=== PATIENT | female | born 1995 | race Two or more races ===

== ENCOUNTER 2017-01-24 10:28 | Emergency (ER) | payer SELFPAY ==
[~2017-01-24] VITALS: Ht 162.6 cm; Wt 108.9 kg
[2017-01-24 10:47] VITALS: BP 135/88
== END 2017-01-24 12:40 | disposition home or self-care (01) ==
LOC: ER 10:28
DX: S39.012A Strain of muscle, fascia and tendon of lower back, initial encounter (principal); X58.XXXA Exposure to other specified factors, initial encounter; Y93.89 Activity, other specified; Y99.8 Other external cause status; Y92.89 Other specified places as the place of occurrence of the external cause

== ENCOUNTER 2019-12-31 18:21 | Emergency (ER) | payer SELFPAY ==
[~2019-12-31] VITALS: Ht 167.6 cm; Wt 113.4 kg
[2019-12-31 18:57] VITALS: BP 158/94
[2019-12-31] MEDS ORDERED: KETOROLAC TROMETH 60MG/2ML VIAL IM ONE (19:30)
[2019-12-31] MEDS ORDERED: methylPREDNISolone SOD SUCC 125 MG/2 ML VL IM ONE (19:30)
[2019-12-31 19:52] LABS: Urine WBC None Seen /hpf (0 - 5)
[2019-12-31 20:04] LABS: Urine Bacteria NONE SEEN /hpf (None Seen); Urine Blood 3+ /uL (Negative)
[2019-12-31 20:38] LABS: Urine Specific Gravity 1.029 (1.001-1.035)
[2019-12-31] MEDS ORDERED: cefTRIAXone SOD 1,000 MG VL IM ONE (20:45)
== END 2019-12-31 21:08 | disposition home or self-care (01) ==
LOC: ER 18:21 → EDBD 18:21 → ER 21:08
DX: M51.16 Intervertebral disc disorders with radiculopathy, lumbar region (principal); N39.0 Urinary tract infection, site not specified; E11.9 Type 2 diabetes mellitus without complications
CPT/HCPCS: 72131; 81001; 81025; 96372; 99284; J1885; J2930

== ENCOUNTER 2020-11-29 00:42 | Inpatient (IN) | payer MEDICAID ==
[~2020-11-29] VITALS: Ht 162.6 cm; Wt 132.3 kg
[2020-11-29] VITALS (7 sets, daily range): BP systolic 101–144; BP diastolic 59–78
[2020-11-29] MEDS ORDERED: ACETAMINOPHEN 500 MG TAB PO ONE (01:45)
[2020-11-29 02:25] LABS: Alanine Aminotransferase 36 U/L (13-56); Albumin 3.4 g/dL (3.4-5.0); Anion Gap 6 (5-15); Aspartate Aminotransferase 27 U/L (15-37); BUN/Creatinine Ratio 6.8; Blood Urea Nitrogen 6 mg/dL (7-18); Calcium 8.3 mg/dL (8.5-10.1); Carbon Dioxide 28 mmol/L (21-32); Chloride 99 mmol/L (98-107); GFR African American 100 mL/min; GFR Non-African American 83 mL/min; Glucose 260 mg/dL (74-106); Potassium 3.9 mmol/L (3.5-5.1); Sodium 133 mmol/L (136-145)
[2020-11-29 02:26] LABS: INR 1.03 (0.9-1.15); Partial Thromboplastin Time 29.3 sec (23.6-33.0)
[2020-11-29 02:29] LABS: Alkaline Phosphatase 119 U/L (45-117); Bilirubin, Total 0.4 mg/dL (0.2-1.0); Total Protein 8.8 g/dL (6.4-8.2)
[2020-11-29] MEDS ORDERED: ACETAMINOPHEN 325 MG TAB PO ONE (02:30)
[2020-11-29 04:39] LABS: Basophils # (auto) 0 10 ^3/uL (0-0.2); Eosinophils # (auto) 0 10 ^3/uL (0-0.8); Eosinophils % (auto) 0.1 % (0.0-7.0); Hemoglobin 14.6 g/dL (12.2-16.2); Lymphocytes # (auto) 1.3 10 ^3/uL (0.4-5.4); Monocytes # (auto) 0.3 10 ^3/uL (0-1.3); Nucleated Red Blood Cells % 0.1 %
[2020-11-29 04:41] LABS: Basophils % (auto) 0.5 % (0.0-2.0); Hematocrit 43.3 % (36.0-46.0); Mean Corpuscular Hemoglobin 25.6 pg (28.0-32.0); Mean Corpuscular Hgb Conc. 33.7 g/dL (32.0-36.0); Mean Corpuscular Volume 75.8 fL (80.0-100.0); Monocytes % (auto) 6.2 % (0.0-12.0); Neutrophils # (auto) 3.6 10 ^3/uL (1.6-8.6); Neutrophils % (auto) 68.2 % (37.0-80.0); Red Blood Cells 5.72 10^6/uL (4.0-5.20); Red Cell Distribution Width 15.1 % (11.8-14.3); White Blood Cell 5.3 10^3/uL (4.4-10.8)
[2020-11-29] MEDS ORDERED: IOHEXOL 350 MG/ML 100ML IJ ONE (05:55)
[2020-11-29] MEDS ORDERED: AZITHROMYCIN 500MG/ 250ML 250 ML IV ONE (06:00)
[2020-11-29] MEDS ORDERED: cefTRIAXone 1GM/50ML D5W 50 ML IV ONE (06:00)
[2020-11-29 08:38] LABS: Urine Bacteria FEW /hpf (None Seen); Urine Blood Negative /uL (Negative); Urine Specific Gravity 1.018 (1.001-1.035); Urine WBC 2 /hpf (0 - 5)
[2020-11-29] MEDS ORDERED: ACETAMINOPHEN 500 MG TAB PO PRN (09:00)
[2020-11-29] MEDS ORDERED: cefTRIAXone 1GM/50ML D5W 50 ML IV SCH (09:00)
[2020-11-29] MEDS ORDERED: MORPHINE SULFATE INJECTION 2 MG/ML SYRG IV PRN (09:00)
[2020-11-29] MEDS ORDERED: NITROGLYCERIN 0.4 MG SL TAB SL PRN (09:00)
[2020-11-29] MEDS: ZINC SULFATE 220mg CAP or TAB PO SCH (11:47)
[2020-11-29] MEDS: DexAMETHasone SOD PHOS 10MG/1ML VIAL INJ IV SCH (11:47)
[2020-11-29] MEDS: CHOLECALCIFEROL (VITD3) 2,000 UNIT CAP/TAB PO SCH (11:48)
[2020-11-29] MEDS: ASCORBIC ACID 1,000 MG TAB PO SCH (11:48)
[2020-11-29] MEDS: ENOXAPARIN SOD 40 MG/0.4 ML SYRINGE SC SCH ×2 (11:49→21:34)
[2020-11-29] MEDS: IVERMECTIN 3 MG TAB PO SCH (14:23)
[2020-11-30] MEDS: ALBUTEROL SULF HFA 90MCG INH 200DOSE IN PRN ×3 (00:09→20:06)
[2020-11-30 05:00] VITALS: BP 115/60
[2020-11-30] MEDS ORDERED: guaiFENesin-DM 100/10mg/5ml SYR PO PRN (06:30)
[2020-11-30 07:12] LABS: Basophils # (auto) 0 10 ^3/uL (0-0.2); Basophils % (auto) 0.6 % (0.0-2.0); Eosinophils # (auto) 0 10 ^3/uL (0-0.8); Eosinophils % (auto) 0.1 % (0.0-7.0); Hemoglobin 13.7 g/dL (12.2-16.2); Mean Corpuscular Hemoglobin 25.5 pg (28.0-32.0); Nucleated Red Blood Cells % 0.1 %; Red Blood Cells 5.36 10^6/uL (4.0-5.20); White Blood Cell 4.7 10^3/uL (4.4-10.8)
[2020-11-30 07:16] LABS: Hematocrit 40.9 % (36.0-46.0); Lymphocytes # (auto) 1.5 10 ^3/uL (0.4-5.4); Lymphocytes % (auto) 30.8 % (10.0-50.0); Mean Corpuscular Hgb Conc. 33.4 g/dL (32.0-36.0); Mean Corpuscular Volume 76.3 fL (80.0-100.0); Monocytes # (auto) 0.2 10 ^3/uL (0-1.3); Monocytes % (auto) 5.2 % (0.0-12.0); Neutrophils % (auto) 63.3 % (37.0-80.0)
[2020-11-30 08:30] VITALS: BP 123/62
[2020-11-30 09:00] VITALS: BP 123/62
[2020-11-30] MEDS: CHOLECALCIFEROL (VITD3) 2,000 UNIT CAP/TAB PO SCH (09:48)
[2020-11-30] MEDS: ASCORBIC ACID 1,000 MG TAB PO SCH (09:48)
[2020-11-30] MEDS: ZINC SULFATE 220mg CAP or TAB PO SCH (09:49)
[2020-11-30] MEDS: IVERMECTIN 3 MG TAB PO SCH (09:49)
[2020-11-30] MEDS: ENOXAPARIN SOD 40 MG/0.4 ML SYRINGE SC SCH ×2 (09:49→21:45)
[2020-11-30] MEDS: cefTRIAXone 1GM/50ML D5W 50 ML IV SCH (09:50)
[2020-11-30] MEDS: DexAMETHasone SOD PHOS 10MG/1ML VIAL INJ IV SCH (09:50)
[2020-11-30] MEDS ORDERED: REMDESIVIR PER PHARMACY 0 ML IV SCH (10:15)
[2020-11-30] MEDS: AZITHROMYCIN 500MG/ 250ML 250 ML IV SCH (10:56)
[2020-11-30 13:00] VITALS: BP 121/58
[2020-11-30] MEDS ORDERED: ACETAMINOPHEN 325 MG TAB PO PRN (13:15)
[2020-11-30 13:20] LABS: Anion Gap 9 (5-15); Blood Urea Nitrogen 8 mg/dL (7-18); Carbon Dioxide 22 mmol/L (21-32); Chloride 102 mmol/L (98-107); Glucose 227 mg/dL (74-106); Potassium 3.5 mmol/L (3.5-5.1); Sodium 133 mmol/L (136-145)
[2020-11-30 13:21] LABS: Alanine Aminotransferase 35 U/L (13-56); Alkaline Phosphatase 98 U/L (45-117); Aspartate Aminotransferase 31 U/L (15-37); BUN/Creatinine Ratio 11.3; Bilirubin, Total 0.4 mg/dL (0.2-1.0); Calcium 8.2 mg/dL (8.5-10.1); GFR African American 128 mL/min; GFR Non-African American 106 mL/min; Total Protein 8.1 g/dL (6.4-8.2)
[2020-11-30] MEDS ORDERED: REMDESIVIR 200 MG in NS 210ml LOADING DOSE ADULT IV ONE (15:00)
[2020-11-30 17:00] VITALS: BP 123/61
[2020-11-30] MEDS ORDERED: ERGOCALCIFEROL 50,000 UNIT(1.25MG) CAP PO SCH (18:15)
[2020-11-30] MEDS ORDERED: DEXTROSE (50%) 50ML SYRG IV PRN (18:15)
[2020-11-30 21:00] VITALS: BP_SYST 68
[2020-11-30] MEDS: ACCU-CHEK COMFORT CURVE STRIP VI SCH (21:45)
[2020-11-30] MEDS: InsuLIN REG 1unit/0.01ml Soln (100units/ml) SC SCH (21:46)
[2020-12-01] VITALS (9 sets, daily range): BP systolic 107–123; BP diastolic 53–81
[2020-12-01] MEDS: ACCU-CHEK COMFORT CURVE STRIP VI SCH ×4 (06:27→22:10)
[2020-12-01] MEDS: InsuLIN REG 1unit/0.01ml Soln (100units/ml) SC SCH ×4 (06:32→22:18)
[2020-12-01 07:12] LABS: Calcium 8.8 mg/dL (8.5-10.1); Potassium 3.4 mmol/L (3.5-5.1)
[2020-12-01 07:18] LABS: BUN/Creatinine Ratio 16.9; Bilirubin, Total 0.3 mg/dL (0.2-1.0)
[2020-12-01] MEDS: cefTRIAXone 1GM/50ML D5W 50 ML IV SCH (08:27)
[2020-12-01] MEDS: DexAMETHasone SOD PHOS 10MG/1ML VIAL INJ IV SCH (08:27)
[2020-12-01] MEDS: ASCORBIC ACID 1,000 MG TAB PO SCH (08:28)
[2020-12-01] MEDS: IVERMECTIN 3 MG TAB PO SCH (08:28)
[2020-12-01] MEDS: CHOLECALCIFEROL (VITD3) 2,000 UNIT CAP/TAB PO SCH (08:28)
[2020-12-01] MEDS: ZINC SULFATE 220mg CAP or TAB PO SCH (08:28)
[2020-12-01] MEDS: ENOXAPARIN SOD 40 MG/0.4 ML SYRINGE SC SCH ×2 (08:29→22:09)
[2020-12-01] MEDS: AZITHROMYCIN 500MG/ 250ML 250 ML IV SCH (10:08)
[2020-12-01] MEDS ORDERED: POTASSIUM CHL 20 Meq TABLET PO ONE (10:30)
[2020-12-01] MEDS: REMDESIVIR 100mg 100 MG in SODIUM CHL 0.9% 230 ML IV SCH (16:08)
[2020-12-02 05:00] VITALS: BP 105/65
[2020-12-02] MEDS: ACCU-CHEK COMFORT CURVE STRIP VI SCH ×4 (06:23→21:36)
[2020-12-02] MEDS: InsuLIN REG 1unit/0.01ml Soln (100units/ml) SC SCH ×4 (06:24→21:41)
[2020-12-02 06:49] LABS: Potassium 3.6 mmol/L (3.5-5.1)
[2020-12-02] MEDS: ALBUTEROL SULF HFA 90MCG INH 200DOSE IN PRN ×2 (07:00→22:22)
[2020-12-02] MEDS ORDERED: INSULIN LANTUS (GLARGINE) 1 /0.01ml (100units/ml) SC SCH (07:00)
[2020-12-02 07:03] LABS: Albumin 2.9 g/dL (3.4-5.0); BUN/Creatinine Ratio 17.7; Bilirubin, Total 0.2 mg/dL (0.2-1.0); Calcium 8.6 mg/dL (8.5-10.1); Total Protein 8.1 g/dL (6.4-8.2)
[2020-12-02 09:00] VITALS: BP 94/59
[2020-12-02] MEDS: cefTRIAXone 1GM/50ML D5W 50 ML IV SCH (09:30)
[2020-12-02] MEDS: ENOXAPARIN SOD 40 MG/0.4 ML SYRINGE SC SCH ×2 (09:30→21:37)
[2020-12-02] MEDS: IVERMECTIN 3 MG TAB PO SCH (09:30)
[2020-12-02] MEDS: DexAMETHasone SOD PHOS 10MG/1ML VIAL INJ IV SCH (09:31)
[2020-12-02] MEDS: ASCORBIC ACID 1,000 MG TAB PO SCH (09:31)
[2020-12-02] MEDS: ZINC SULFATE 220mg CAP or TAB PO SCH (09:31)
[2020-12-02] MEDS: CHOLECALCIFEROL (VITD3) 2,000 UNIT CAP/TAB PO SCH (09:31)
[2020-12-02] MEDS: AZITHROMYCIN 500MG/ 250ML 250 ML IV SCH (10:49)
[2020-12-02 13:00] VITALS: BP 100/55
[2020-12-02 13:30] VITALS: BP 100/55
[2020-12-02] MEDS: REMDESIVIR 100mg 100 MG in SODIUM CHL 0.9% 230 ML IV SCH (15:00)
[2020-12-02 17:00] VITALS: BP 117/65
[2020-12-02] MEDS ORDERED: DEXTROSE (50%) 50ML SYRG IV PRN (17:30)
[2020-12-02 22:00] VITALS: BP 121/75
[2020-12-03 05:00] VITALS: BP 103/59
[2020-12-03] MEDS: ACCU-CHEK COMFORT CURVE STRIP VI SCH ×4 (06:16→22:12)
[2020-12-03] MEDS: InsuLIN REG 1unit/0.01ml Soln (100units/ml) SC SCH ×4 (06:19→22:14)
[2020-12-03] MEDS: INSULIN LANTUS (GLARGINE) 1 /0.01ml (100units/ml) SC SCH (06:19)
[2020-12-03] MEDS: ALBUTEROL SULF HFA 90MCG INH 200DOSE IN PRN ×2 (07:03→21:41)
[2020-12-03 07:07] LABS: Potassium 3.5 mmol/L (3.5-5.1)
[2020-12-03 07:16] LABS: Albumin 2.9 g/dL (3.4-5.0); BUN/Creatinine Ratio 13.8; Bilirubin, Total 0.3 mg/dL (0.2-1.0); Calcium 8.4 mg/dL (8.5-10.1); Total Protein 7.8 g/dL (6.4-8.2)
[2020-12-03 08:30] VITALS: BP 98/67
[2020-12-03] MEDS: ZINC SULFATE 220mg CAP or TAB PO SCH (09:09)
[2020-12-03] MEDS: DexAMETHasone SOD PHOS 10MG/1ML VIAL INJ IV SCH (09:09)
[2020-12-03] MEDS: cefTRIAXone 1GM/50ML D5W 50 ML IV SCH (09:09)
[2020-12-03] MEDS: IVERMECTIN 3 MG TAB PO SCH (09:09)
[2020-12-03] MEDS: ASCORBIC ACID 1,000 MG TAB PO SCH (09:10)
[2020-12-03] MEDS: CHOLECALCIFEROL (VITD3) 2,000 UNIT CAP/TAB PO SCH (09:10)
[2020-12-03] MEDS: ENOXAPARIN SOD 40 MG/0.4 ML SYRINGE SC SCH ×2 (09:29→22:12)
[2020-12-03] MEDS: AZITHROMYCIN 500MG/ 250ML 250 ML IV SCH (10:14)
[2020-12-03 12:30] VITALS: BP 121/69
[2020-12-03] MEDS ORDERED: METF-371 PO (14:35)
[2020-12-03] MEDS ORDERED: ERGO1CAP23 PO (14:35)
[2020-12-03] MEDS ORDERED: [UNRECOGNIZED DRUG - CODE] XX (14:35)
[2020-12-03] MEDS: REMDESIVIR 100mg 100 MG in SODIUM CHL 0.9% 230 ML IV SCH (14:48)
[2020-12-03 17:00] VITALS: BP 113/59
[2020-12-03] MEDS: metFORMIN HYDROCHLORIDE 850 MG TAB PO SCH (17:24)
[2020-12-03 22:09] VITALS: BP 127/64
[2020-12-04 05:00] VITALS: BP 114/57
[2020-12-04] MEDS: REMDESIVIR 100mg 100 MG in SODIUM CHL 0.9% 230 ML IV SCH (05:50)
[2020-12-04] MEDS: ACCU-CHEK COMFORT CURVE STRIP VI SCH ×2 (06:23→11:30)
[2020-12-04] MEDS: INSULIN LANTUS (GLARGINE) 1 /0.01ml (100units/ml) SC SCH (06:27)
[2020-12-04] MEDS: InsuLIN REG 1unit/0.01ml Soln (100units/ml) SC SCH ×2 (06:32→12:46)
[2020-12-04 06:43] LABS: Potassium 3.9 mmol/L (3.5-5.1)
[2020-12-04 06:59] LABS: Albumin 2.9 g/dL (3.4-5.0); BUN/Creatinine Ratio 15.6; Bilirubin, Total 0.4 mg/dL (0.2-1.0); Calcium 8.4 mg/dL (8.5-10.1)
[2020-12-04 08:00] VITALS: BP 108/62
[2020-12-04] MEDS: metFORMIN HYDROCHLORIDE 850 MG TAB PO SCH (08:08)
[2020-12-04] MEDS: ALBUTEROL SULF HFA 90MCG INH 200DOSE IN PRN (09:06)
[2020-12-04] MEDS: cefTRIAXone 1GM/50ML D5W 50 ML IV SCH (09:41)
[2020-12-04] MEDS: ZINC SULFATE 220mg CAP or TAB PO SCH (09:42)
[2020-12-04] MEDS: ASCORBIC ACID 1,000 MG TAB PO SCH (09:42)
[2020-12-04] MEDS: CHOLECALCIFEROL (VITD3) 2,000 UNIT CAP/TAB PO SCH (09:42)
[2020-12-04] MEDS: DexAMETHasone SOD PHOS 10MG/1ML VIAL INJ IV SCH (09:42)
[2020-12-04] MEDS: ENOXAPARIN SOD 40 MG/0.4 ML SYRINGE SC SCH (09:43)
[2020-12-04] MEDS ORDERED: GLIP10TA16 PO (12:41)
[2020-12-04 14:00] VITALS: BP_SYST 100; BP_SYST 120; BP_DIAS 60; BP_DIAS 69
== END 2020-12-04 14:15 | disposition home or self-care (01) | DRG 137 ==
LOC: EDBD 00:42 → EDUNIT# 00:42 → ER 00:45 → TELE 08:52 → TELE-EAST 10:24
PROVIDERS: ADMIT Nurse Practitioner Acute Care; ATTEND Internal Medicine Nephrology
PROC: XW13325 Transfusion of Convalescent Plasma (Nonautologous) into Peripheral Vein, Percutaneous Approach, New Technology Group 5 (ICD-10-PCS; principal; 2020-11-29)
PROC: XW033E5 Introduction of Remdesivir Anti-infective into Peripheral Vein, Percutaneous Approach, New Technology Group 5 (ICD-10-PCS; 2020-11-30)
DX: U07.1 COVID-19 (principal); J12.82 Pneumonia due to coronavirus disease 2019; D89.839 Cytokine release syndrome, grade unspecified; Z68.43 Body mass index [BMI] 50.0-59.9, adult; E11.9 Type 2 diabetes mellitus without complications; E55.9 Vitamin D deficiency, unspecified; E66.01 Morbid (severe) obesity due to excess calories
CPT/HCPCS: 36415; 36430; 71045; 71275; 80053; 80061; 81001; 82306; 82728; 82962; 83036; 83605; 83615; 84484; 85025; 85379; 85610; 85652; 85730; 86141; 86850; 86900; 86901; 87040; 87426; 93005; 94640; 96365; 96367; G0378; J0696; J1100; J1815

== ENCOUNTER 2022-12-20 02:56 | Emergency (ER) | payer MEDICAID ==
[~2022-12-20 02:56] MED LIST: ERGO1CAP23 PO; GLIP10TA21 PO; METF-371 PO; [UNRECOGNIZED DRUG - CODE] XX
[2022-12-20 04:21] VITALS: BP 156/67; PULSE 85; RESP 20; TEMP 98.4; O2SAT 96
[2022-12-20] MEDS ORDERED: AMOX875T4 PO (04:25)
[2022-12-20] MEDS ORDERED: IBUP-1456 PO (04:25)
[2022-12-20] MEDS ORDERED: KETOROLAC TROMETH 60MG/2ML VIAL IM ONE (04:30)
== END 2022-12-20 05:16 | disposition home or self-care (01) ==
LOC: ER 03:00
DX: J01.90 Acute sinusitis, unspecified (principal); E11.9 Type 2 diabetes mellitus without complications; Z79.899 Other long term (current) drug therapy; Z79.84 Long term (current) use of oral hypoglycemic drugs
CPT/HCPCS: 81025; 96372; 99283; J1885

== ENCOUNTER 2024-06-16 07:28 | Emergency (ER) | payer MEDICAID ==
[~2024-06-16] VITALS: Ht 160 cm; Wt 113.4 kg
[~2024-06-16 07:28] MED LIST changes: +AMOX875T4 PO; +IBUP-1456 PO
--- NOTE | 2024-06-16 09:08 | ED.PDOC ---
History of Present Illness(SKN HPI Comments 29-year-old female with a history of prediabetes presents for a possible abscess to the right buttock. Symptoms started five days ago patient was prompted to the emergency department as symptoms have been gradually worsening over time. Able to get minimal relief with [id number] Tylenol. Patient reports pain is aggravated with sitting on the affected side and aggravated to touch. Denies fevers chills drainage from the affected side Chief Complaint: Abscess Time Seen by MD: 08:39 Primary Care Provider: UNKNOWN History of Present Illness: Nurses Notes, Medications, Allergies Allergies: Coded Allergies: NO KNOWN ALLERGIES (Unverified , 01/24/17) Home Meds Active Scripts Ibuprofen (Ibuprofen) 800 Mg Tab, 1 TAB PO TID PRN, #30 TAB 0 Refills Prov:TROY COHEN 12/20/22 Amoxicillin & Pot Clavulanate (Amoxicillin/Potassium Cla) 875 Mg Tab, 1 TAB PO BID for 7 Days, #14 TAB 0 Refills Prov:TROY COHEN 12/20/22 Glipizide (Glipizide Er) 10 Mg Tab, 1 TAB PO DAILY for 30 Days, #30 TAB 1 Refill Prov:ZOILA HECTOR MD 12/04/20 Blood Glucose Monitor & Blood (NEUTEK 2TEK BLOOD GLUCOSE) Gluc/Pre Mis, PRE XX TID, #1 Prov:CAMILLE RODRIGES MD 12/03/20 Metformin Hydrochloride (Metformin Hcl) 850 Mg Tab, 1 TAB PO BID for 30 Days, #60 TAB 5 Refills Prov:CAMILLE RODRIGES MD 12/03/20 Ergocalciferol (VITAMIN D 24302 UNIT) 50,[address] [place], [address] UNIT PO Q7D for 9 Days, #9 CAP Prov:CAMILLE RODRIGES MD 12/03/20 Information Source: Patient Mode of Arrival: Ambulatory Past Medical History PAST MEDICAL HISTORY: DM Surgical History: Denies all surgeries ARCHITECT MANAGER History: No Pertinent ARCHITECT MANAGER History Family History Family History: Unknown Social History Smoker: Non-Smoker Alcohol: Denies ETOH Use Drugs: Denies Drug Use Lives In: Home All Other Systems: Reviewed and Negative (Per HPI) Physical Exam General Appearance: No Apparent Distress, Normal HEENT: Normal ENT Inspection, Pharynx Normal, TMs Normal Neck: Full Range of Motion, Non-Tender, Normal, Normal Inspection Respiratory: Chest Non-Tender, Lungs Clear, No Accessory Muscle Use, No Respiratory Distress, Normal Breath Sounds Cardiovascular: No Murmur, No Gallop, Regular Rate/Rhythm Breast Exam: Deferred Gastrointestinal: No Organomegaly, Non Tender, No Pulsatile Mass, Normal Bowel Sounds, Soft Genitalia: Deferred Pelvic: Deferred Rectal: Deferred Extremities: No calf tenderness, Normal capillary refill, Normal inspection, Normal range of motion, Non-tender, No pedal edema Musculoskeletal : Apperance: Normal Neurologic: Alert, No Motor Deficits, Normal Affect, Normal Mood, No Sensory Deficits Cerebellar Function: Normal Reflexes: Normal Skin: Dry, Normal Color, Warm Lymphatic: No Adenopathy Was a procedure done? Was a procedure done?: No Images 1 - 3 x 3 cm erythematous nonfluctuant abscess. Tender to palpation. Differential Diagnosis (INTG) Differential Diagnosis: Abrasion, Cellulitis, Contusion X-Ray, Labs, Meds, VS Vital Signs Date Time Temp Pulse Resp B/P (MAP) Pulse Ox O2 Delivery O2 Flow Rate FiO2 06/16/24 07:44 97.2 120 16 138/94 (109) 95 Current Medications Medications (Trade) Dose Ordered Sig/Cullen Route Start Time Stop Time Status Last Admin Ceftriaxone Sodium (Rocephin) 1,000 mg ONCE ONCE IM 06/16/24 09:15 06/16/24 09:16 DC 06/16/24 09:40 Acetaminophen/ Hydrocodone Bitart ([place] 7.5/325MG Tab) 1 tab ONCE ONCE PO 06/16/24 09:15 06/16/24 09:16 DC 06/16/24 09:39 X-Ray, Labs, Meds, VS Comment This patient presents with signs and symptoms consistent with a cutaneous abscess. The abscess is localized without any evidence of deep soft tissue infection based on physical examination. The patient required incision and drainage. Differential diagnosis considered but not limited to: abscess, folliculitis, cellulitis. I also considered deep space infection, necrotizing fasciitis, sepsis, however, this is less likely as the patient does not have rapid expanding erythema or pain out of proportion to suggest necrotizing fasciitis. There is no evidence of sepsis on both a review of their vitals and clinical exam. The abscess is still quite firm, and the wound will not benefit from drainage at this time. Will start antibiotics and warm compresses. It is advised to return if symptoms worsen or do not resolve after completion of antibiotics. On reevaluation, patient had symptomatic improvement. Patient is stable for discharge at this time. External notes reviewed. Test results and diagnostic imaging interpreted. All diagnostic findings, discharge care, education and instructions provided Follow-up with PCP in 2 to 3 days Patient verbalized understanding and agreed to treatment plan Vital signs stable, afebrile, no acute distress noted Patient ambulatory with strong steady gait Advised to return precautions for any new or worsening symptoms, return to ER immediately for re-evaluation Patient is aware that the purpose of this visit was for an acute medical emergency requiring emergent stabilization. Chronic conditions, including malignancies have not been ruled out. Patient is instructed to follow up with PCP as directed and discharge instructions for continued care and workup. If unable to arrange follow-up, patient is to return to the emergency department for reassessment. Patient (parent or legal guardian if applicable) was given verbal and written discharge instructions and acknowledges understanding. Time of 1ST Reevaluation: 10:25 Reevaluation 1ST: Improved Patient Education/Counseling: Diagnosis, Treatment Family Education/Counseling: Diagnosis, Treatment Departure 1 Departure Time of Disposition: 10:22 Impression: Primary Impression: Abscess Disposition: 01 HOME / SELF CARE / HOMELESS Condition: Stable e-Prescriptions Hydrocodone-Acetaminophen (Hydrocodone Bitartrate/AC 5-325 mg) 1 Tab Tab 1 TAB PO Q6HP PRN for 2 Days, #8 TAB 0 Refills Prov: LAWRENCE AMADOR NP 06/16/24 Sulfamethoxazole W/Trimethopri (Bactrim Ds Tablet) 1 Tab Tb 1 TAB PO BID for 7 Days, #14 TAB 0 Refills Prov: LAWRENCE AMADOR CARD ASSEMBLER 06/16/24 Cephalexin Monohydrate (Cephalexin) 500 Mg Cap 1 CAP PO QID for 7 Days, #28 CAP 0 Refills Prov: LAWRENCE AMADOR NP 06/16/24 Discharged With: Self Critical Care Note Critical Care Time?: No Stability Stability form required: No Heart Score Heart Score: Heart Score Response (Comments) Value History N/A 0 EKG N/A 0 Age N/A 0 Risk Factors N/A 0 Troponin N/A 0 Total 0 LAWRENCE AMADOR NP Jun 16, 2024 09:08
[2024-06-16] MEDS: HYDROcodone-ACET 7.5/325MG TAB PO ONE (09:39)
[2024-06-16] MEDS: cefTRIAXone SOD 1,000 MG VL IM ONE (09:40)
[2024-06-16] MEDS ORDERED: BACDST PO (10:24)
[2024-06-16] MEDS ORDERED: CEPH500C PO (10:24)
[2024-06-16] MEDS ORDERED: HYDR-4902 PO (10:24)
[2024-06-16 10:42] VITALS: BP 131/76; PULSE 80; RESP 18; TEMP 98.3; O2SAT 97
== END 2024-06-16 10:56 | disposition home or self-care (01) ==
LOC: ER 07:28
DX: L02.31 Cutaneous abscess of buttock (principal); E11.9 Type 2 diabetes mellitus without complications; Z79.84 Long term (current) use of oral hypoglycemic drugs; Z79.899 Other long term (current) drug therapy
CPT/HCPCS: 96372; 99283; J0696

== ENCOUNTER 2024-11-01 15:45 | Emergency (ER) | payer SELFPAY ==
[~2024-11-01] VITALS: Ht 162.6 cm; Wt 115.0 kg
[~2024-11-01 15:45] MED LIST changes: +BACDST PO; +CEPH500C PO; +HYDR-4902 PO
--- NOTE | 2024-11-01 16:22 | ED.PDOC ---
History of Present Illness(SKN HPI Comments A 29 YEAR OLD FEMALE PRESENTS TO THE ED WITH COMPLAINT OF BLISTER OF RIGHT FOOT. PATIENT STATES SHE HAS HAD A BLISTER ON HER RIGHT DORSAL FOOT FOR THE PAST 1 WEEK. PATIENT REPORTS SHE INITIALLY THOUGHT SHE WAS BITTEN BY AN INSECT BITE, BUT IS NOT SURE AND IS NOW CONCERNED THIS AREA IS INFECTED. PATIENT DENIES FEVER, CHILLS, SHORTNESS OF BREATH, CHEST PAIN, ABDOMINAL PAIN, NAUSEA, VOMITING, HEADACHE, OR OTHER COMPLAINTS. NO OTHER SYMPTOMS OR MODIFYING FACTORS AT THIS TIME. PATIENT IS ALERT, ORIENTED X 4, AND HAS STEADY GAIT. Chief Complaint: Abscess Time Seen by MD: 16:17 Primary Care Provider: UNKNOWN History of Present Illness: Nurses Notes, Medications, Allergies Allergies: Coded Allergies: NO KNOWN ALLERGIES (Unverified , 01/24/17) Home Meds Active Scripts Ibuprofen (Ibuprofen) 800 Mg Tab, 1 TAB PO TID, #24 TAB Prov:FELICITAS NEVILLE 11/01/24 Sulfamethoxazole W/Trimethopri (Bactrim Ds Tablet) 1 Tab Tb, 1 TAB PO BID for 10 Days, #20 TAB Prov:FELICITAS NEVILLE 11/01/24 Hydrocodone-Acetaminophen (Hydrocodone Bitartrate/AC 5-325 mg) 1 Tab Tab, 1 TAB PO Q6HP PRN for 2 Days, #8 TAB 0 Refills Prov:LAWRENCE AMADOR NP 06/16/24 Sulfamethoxazole W/Trimethopri (Bactrim Ds Tablet) 1 Tab Tb, 1 TAB PO BID for 7 Days, #14 TAB 0 Refills Prov:LAWRENCE AMADOR MULE DRIVER 06/16/24 Cephalexin Monohydrate (Cephalexin) 500 Mg Cap, 1 CAP PO QID for 7 Days, #28 CAP 0 Refills Prov:LAWRENCE AMADOR NP 06/16/24 Ibuprofen (Ibuprofen) 800 Mg Tab, 1 TAB PO TID PRN, #30 TAB 0 Refills Prov:TROY COHEN 12/20/22 Amoxicillin & Pot Clavulanate (Amoxicillin/Potassium Cla) 875 Mg Tab, 1 TAB PO BID for 7 Days, #14 TAB 0 Refills Prov:TROY COHEN 12/20/22 Glipizide (Glipizide Er) 10 Mg Tab, 1 TAB PO DAILY for 30 Days, #30 TAB 1 Refill Prov:ZOILA HECTOR MD 12/04/20 Blood Glucose Monitor & Blood (NEUTEK 2TEK BLOOD GLUCOSE) Gluc/Pre Mis, PRE XX TID, #1 Prov:CAMILLE RODRIGES MD 12/03/20 Metformin Hydrochloride (Metformin Hcl) 850 Mg Tab, 1 TAB PO BID for 30 Days, #60 TAB 5 Refills Prov:CAMILLE RODRIGES MD 12/03/20 Ergocalciferol (VITAMIN D 18956 UNIT) 50,000 [place], [address] UNIT PO Q7D for 9 Days, #9 CAP Prov:CAMILLE RODRIGES MD 12/03/20 Information Source: Patient Mode of Arrival: Ambulatory Severity: Mild, Moderate Timing: Days Duration: Since onset, Days Prehospital treatment: None Location: Foot (RIGHT FOOT) Mechanism: Insect Occurence: Indoors Object: None Condition of Object: None Retained Foreign Body: No Wound Type: Other (BLISTER) Immunization Status of Animal: Current, NA Tetanus: UTD, Unknown History of: None Associated Signs and Symptoms: Redness, Pain Past Medical History PAST MEDICAL HISTORY: DM Surgical History: Denies all surgeries PHYSICIAN SURGEON History: No Pertinent PHYSICIAN SURGEON History Family History Family History: Reviewed,noncontributory to illness Social History Smoker: Non-Smoker Alcohol: Denies ETOH Use Drugs: Denies Drug Use Lives In: Home Constitutional: denies: chills, diaphoresis, fatigue, fever, malaise, sweats, weakness, others EENTM: denies: blurred vision, double vision, ear bleeding, ear discharge, ear drainage, ear pain, ear ringing, eye pain, eye redness, hearing loss, mouth pain, mouth swelling, nasal discharge, nose bleeding, nose congestion, nose pain, photophobia, tearing, throat pain, throat swelling, voice changes, others Respiratory: denies: cough, hemoptysis, orthopnea, SOB at rest, shortness of breath, SOB with excertion, stridor, wheezing, others Cardiovascular: denies: chest pain, dizzy spells, diaphoresis, Dyspnea on exertion, edema, irregular heart beat, left arm pain, lightheadedness, palpitations, PND, syncope, others Gastrointestinal: denies: abdomen distended, abdominal pain, blood streaked bowels, constipated, diarrhea, dysphagia, difficulty swallowing, hematemesis, melena, nausea, poor appetite, poor fluid intake, rectal bleeding, rectal pain, vomiting, others Genitourinary: denies: abnormal vagina bleeding, burning, dyspareunia, dysuria, flank pain, frequency, hematuria, incontinence, pain, , vagina discharge, urgency, others Neurological: denies: dizziness, fainting, headache, left sided numbness, left sided weakness, numbness, paresthesia, pre-existing deficit, right sided numbness, right sided weakness, seizure, speech problems, tingling, tremors, weakness, others Musculoskeletal: denies: back pain, gout, joint pain, joint swelling, muscle pain, muscle stiffness, neck pain, others Integumetry: reports: lesions, wounds (INSECT BITE OF RIGHT FOOT); denies: bruises, change in color, change in hair/nails, dryness, laceration, lumps, rash, others Allergic/Immunocompromised: denies: Difficulty Healing, Frequent Infections, Hives, Itching, others Hematologic/Lymphatic: denies: anemia, blood clots, easy bleeding, easy bruising, swollen glands, others Endocrine: denies: excessive hunger, excessive sweating, excessive thirst, excessive urination, flushing, intolerance to cold, intolerance to heat, unexplained weight gain, unexplained weight loss, others Psychiatric: denies: anxiety, bipolar disorder, depression, hopeless, panic disorder, schizophrenia, sleepless, suicidal, others All Other Systems: Reviewed and Negative Physical Exam General Appearance: No Apparent Distress, Obese HEENT: Normal ENT Inspection, PERRL/EOMI, Pharynx Normal, TMs Normal Neck: Full Range of Motion, Non-Tender, Normal, Normal Inspection Respiratory: Chest Non-Tender, Lungs Clear, No Accessory Muscle Use, No Respiratory Distress, Normal Breath Sounds Cardiovascular: No Edema, No JVD, No Murmur, No Gallop, Normal Peripheral Pulses, Regular Rate/Rhythm Breast Exam: Deferred Gastrointestinal: No Organomegaly, Non Tender, No Pulsatile Mass, Normal Bowel Sounds, Soft Genitalia: Deferred Pelvic: Deferred Rectal: Deferred Extremities: No calf tenderness, Normal capillary refill, Normal range of motion, No pedal edema, Tender (WITH BLISTER WOUND ON RIGHT DORSAL FOOT. ) Musculoskeletal : Apperance: Normal Neurologic: Alert, crew manager II-XII nml as Tested, No Motor Deficits, Normal Affect, Normal Mood, No Sensory Deficits Cerebellar Function: Normal Reflexes: Normal Skin: Dry, Warm, Wounds (BLISTER WOUND ON RIGHT DORSAL FOOT, NO BLEEDING AND PUS DRAINAGE. ) Peripheral Pulses: 2+ carotid (R), 2+ carotid (L), 2+ dorsalis pedis (R), 2+ dorsalis pedis (L) Lymphatic: No Adenopathy Was a procedure done? Was a procedure done?: No Sedation Sedation?: No Incision and Drainage Incision and Drainage: Other (BLISTER) Location RIGHT DORSAL FOOT Preparation: Betadine, Saline Incision and Wound: Pus, Blood, Irrigated Informed consent obtained: No Risks/benefits/alt described: Yes Notes AN 18 GAUGE NEEDLE WAS USED TO POKE A HOLE INTO THE PATIENT'S BLISTER ON HER RIGHT DORSAL FOOT. PUS WAS DRAINED FROM THE BLISTER AND SKIN WAS REMOVED. PATIENT'S WOUND WAS THEN CLEANED USING NORMAL SALINE AND THEN STERILE GAUZE WAS APPLIED. PATIENT TOLERATED WELL. Images 1 - Differential Diagnosis (INTG) Differential Diagnosis: Abrasion, Cellulitis, Contusion, Insect Envenomation, Puncture Wound Differential Diagnosis: Impetigo, Intertrigo, N/A Differential Diagnosis: N/A Abscess: N/A Differential Diagnosis: N/A X-Ray, Labs, Meds, VS Vital Signs Date Time Temp Pulse Resp B/P (MAP) Pulse Ox O2 Delivery O2 Flow Rate FiO2 11/01/24 16:17 97.9 94 18 147/92 (110) 94 97.9 X-Ray, Labs, Meds, VS Comment EXTERNAL MEDICAL RECORDS REVIEWED: [NONE] INDEPENDENT HISTORIANS: [NONE] SOCIAL DETERMINANTS OF HEALTH: [NONE] LABS ORDERED: NONE REVIEWED AND INTERPRETED RESULTS: NONE IMAGING ORDERED: NONE TREATMENTS ORDERED: NONE PROCEDURES PERFORMED: INCISION AND DRAINAGE, SEE PROCEDURE NOTE. CRITICAL CARE TIME: NONE I HAVE DISCUSSED THE PATIENT WITH THE ATTENDING PHYSICIAN DR. PARRISH AND HE AGREES WITH THE PATIENT'S PLAN OF CARE AND DISPOSITION. BASED ON HISTORY OF PRESENT ILLNESS, AND PHYSICAL EXAM, PATIENT WILL BE DISCHARGED HOME. DISCUSSED PLAN FOR DISCHARGE HOME WITH RX [SEPTRA DS AND NAPROXEN 500MG]. MEDICATION WARNINGS GIVEN. SHARED DECISION MAKING: PATIENT INSTRUCTED TO FOLLOW UP WITH PRIMARY CARE PROVIDER IN 1-2 DAYS FOR RE-EVALUATION OF SYMPTOMS. PATIENT VERBALIZES UNDERSTANDING TO RETURN TO ED FOR NEW OR WORSENING SYMPTOMS OR IF FOLLOW UP WITH PCP CANNOT BE OBTAINED. PATIENT FEELS COMFORTABLE GOING HOME AT THIS TIME. ALL QUESTIONS ADDRESSED AT TIME OF DISCHARGE. Time of 1ST Reevaluation: 17:00 Reevaluation 1ST: Improved Patient Education/Counseling: Diagnosis, Treatment, Need For Follow Up Family Education/Counseling: Diagnosis, Treatment, Need For Follow Up Medical Screening: No EMC Exist At This Time SEPSIS Sepsis Screen Vital Signs Date Time Temp Pulse Resp B/P (MAP) Pulse Ox O2 Delivery O2 Flow Rate FiO2 11/01/24 16:17 97.9 94 18 147/92 (110) 94 97.9 Departure 1 Departure Time of Disposition: 17:00 Impression: Primary Impression: Blister (nonthermal), right foot, initial encounter Disposition: HOME / SELF CARE / HOMELESS Condition: Stable Additional Instructions: FOLLOW-UP WITH PCP IN 1 TO 2 DAYS. TAKE MEDICATIONS PRESCRIBED. RETURN TO ED FOR ANY NEW OR WORSENING SYMPTOMS. e-Prescriptions Ibuprofen (Ibuprofen) 800 Mg Tab 1 TAB PO TID, #24 TAB Prov: FELICITAS NEVILLE 11/01/24 Sulfamethoxazole W/Trimethopri (Bactrim Ds Tablet) 1 Tab Tb 1 TAB PO BID for 10 Days, #20 TAB Prov: FELICITAS NEVILLE 11/01/24 Discharged With: Self Critical Care Note Critical Care Time?: No Stability Stability form required: No I personally scribed for FELICITAS NEVILLE ([email or web address]) on 11/01/24 at 16:22. Electronically submitted by Horacio Valentine ([email or web address]). I personally scribed for FELICITAS NEVILLE ([email or web address]) on 11/01/24 at 16:38. Electronically submitted by Horacio Valentine ([employer] [facility]). FELICITAS NEVILLE Nov 01, 2024 16:22
[2024-11-01] MEDS ORDERED: IBUP-1456 PO (16:40)
[2024-11-01] MEDS ORDERED: BACDST PO (16:40)
[2024-11-01 16:50] VITALS: BP 142/89; PULSE 85; RESP 20; TEMP 97.8; O2SAT 96
== END 2024-11-01 16:50 | disposition home or self-care (01) ==
LOC: ER 15:45
DX: S90.821A Blister (nonthermal), right foot, initial encounter (principal); E11.9 Type 2 diabetes mellitus without complications; W57.XXXA Bitten or stung by nonvenomous insect and other nonvenomous arthropods, initial encounter; Y93.89 Activity, other specified; Y92.89 Other specified places as the place of occurrence of the external cause; Y99.8 Other external cause status
CPT/HCPCS: 10140